=== PATIENT | male | born 1945 | race Caucasian/White ===

== ENCOUNTER 2021-12-28 11:42 | Inpatient (IN) ==
[2021-12-28 11:57] LABS: ABS Eosinophils 0.2 10^3/ul (0-0.6); ABS Lymphocytes 1.3 10^3/ul (1.0-4.8); ABS Monocytes 0.6 10^3/ul (0-0.8); ABS Neutrophils 5.1 10^3/ul (1.5-7.7); Eosinophil % 2.7 %; Hematocrit 40 % (42-52); Hemoglobin 13.6 g/dL (14.0-18.0); Lymphocyte % 17.7 %; Mean Corpuscular HGB Conc 34 g/dL (31-36); Mean Corpuscular Hemoglobin 31 pg (27-31); Mean Corpuscular Volume 90 fL (80-94); Mean Platelet Volume 8.4 fL (7.4-10.4); Platelet Count 141 10^3/uL (150-450); Red Blood Count 4.41 10^6 /uL (4.18-5.48); Red Cell Distribution Width 15 % (10-15); White Blood Count 7.2 10^3/uL (3.5-10.8)
[2021-12-28] MEDS ORDERED: Iodixanol (CONTRAST) 320 MG/ML 100 ML SDV IV ONE (12:01)
[2021-12-28 12:06] LABS: Activated Partial Thrombo Time 32.6 seconds (26.0-38.0); INR 1.07 (0.86-1.15)
[2021-12-28] MEDS ORDERED: Labetalol IV 5 MG/ML 20 ml VIAL IV PUSH ONE (12:12)
[2021-12-28] MEDS ORDERED: Alteplase (100 mg Vial) 100 mg VIAL IV ONE ×2 (12:12)
[2021-12-28 12:43] LABS: Albumin 4.1 g/dL (3.2-5.2); Albumin/Globulin Ratio 1.8 (1-3); Calcium 9.2 mg/dL (8.6-10.3); Globulin 2.3 g/dL (2-4); HDL Cholesterol 34.8 mg/dL; Potassium 4.1 mmol/L (3.5-5.0); Total Bilirubin 0.4 mg/dL (0.2-1.0); Total Protein 6.4 g/dL (6.4-8.9); eGFR CKD-EPI 83.5 (>60)
[2021-12-28] MEDS ORDERED: Labetalol IV 5 MG/ML 20 ml VIAL IV PUSH PRN (12:48)
[2021-12-28] MEDS ORDERED: Ondansetron 4 mg VIAL 2 MG/ML 2 ml VIAL IV PRN (12:48)
[2021-12-28] MEDS ORDERED: Acetaminophen IV 1 GM/100ML 100 ML IV PRN (12:48)
[2021-12-28 13:36] LABS: High Sensitivity Troponin 1 Hr 3 pg/mL (<20)
[2021-12-28 13:38] LABS: Acetaminophen < 15 mcg/mL; Alcohol, S < 13 mg/dL (<13); Salicylate < 2.50 mg/dL (<30)
[2021-12-28] MEDS ORDERED: Lactated Ringers 500 ml BAG 500 ML IV ONE (13:55)
[2021-12-28] MEDS ORDERED: Dextrose 50% Syringe 50 ml 25 GM/50 ML SYRINGE IV PUSH PRN (16:06)
[2021-12-28 17:20] LABS: TSH Ultra Thyroid Stim Horm 2.28 mcIU/mL (0.34-5.60)
[2021-12-28 17:26] LABS: Urine Appearance Cloudy; Urine Color Yellow; Urine Ketones Negative (Negative); Urine Protein Negative (Negative); Urine Specific Gravity 1.027 (1.002-1.030); Urine Urobilinogen Negative (Negative)
[2021-12-28 17:27] LABS: Urine Bilirubin Negative (Negative); Urine Blood Negative (Negative); Urine Glucose Negative (Negative); Urine Nitrite Negative (Negative)
[2021-12-28 17:39] LABS: Urine Bacteria 1+ (Absent); Urine Red Blood Cell 1+(3-5/hpf) (Absent); Urine White Blood Cell 2+(11-20/hpf) (Absent)
[2021-12-29 05:24] LABS: Hematocrit 36 % (42-52); Hemoglobin 12.7 g/dL (14.0-18.0); Mean Corpuscular HGB Conc 35 g/dL (31-36); Mean Corpuscular Hemoglobin 32 pg (27-31); Mean Corpuscular Volume 91 fL (80-94); Mean Platelet Volume 8.4 fL (7.4-10.4); Platelet Count 147 10^3/uL (150-450); Red Blood Count 4.02 10^6 /uL (4.18-5.48); Red Cell Distribution Width 15 % (10-15); White Blood Count 7.7 10^3/uL (3.5-10.8)
[2021-12-29 05:51] LABS: ALT 14 U/L (7-52); Albumin 3.8 g/dL (3.2-5.2); Albumin/Globulin Ratio 1.9 (1-3); Alkaline Phosphatase 56 U/L (35-149); Blood Urea Nitrogen 16 mg/dL (6-24); CO2 Carbon Dioxide 29 mmol/L (22-32); Calcium 8.6 mg/dL (8.6-10.3); Chloride 102 mmol/L (101-111); Glucose 119 mg/dL (70-100); Magnesium 1.4 mg/dL (1.9-2.7); Sodium 136 mmol/L (135-145); Total Protein 5.8 g/dL (6.4-8.9); eGFR CKD-EPI 92.6 (>60)
[2021-12-29] MEDS ORDERED: Magnesium Sulfate 2 gm BAG 2 GM/50 ML BAG IVPB ONE (05:55)
[2021-12-29 05:58] LABS: Anion Gap 5 mmol/L (2-11)
[2021-12-29 06:57] LABS: Potassium Redraw 4.6 mmol/L (3.5-5.0)
[2021-12-29] MEDS ORDERED: Lactated Ringers 1000 ml BAG 1,000 ML IV SCH (09:00)
[2021-12-29] MEDS ORDERED: Cholecalciferol (VIT D3) 1,000 unit TAB PO SCH (09:00)
[2021-12-29] MEDS: Aspirin EC 81 mg TAB.EC (enteric coated) PO SCH (17:01)
[2021-12-30] MEDS ORDERED: Furosemide 40 mg/4 ml IV VIAL IV SLOW PU ONE ×2 (04:32→06:30)
[2021-12-30] MEDS ORDERED: Albuterol/Ipratropium NEB.SOL (2.5/0.5 MG) 3 ML NEB.SOLN INH ONE (04:34)
[2021-12-30] MEDS ORDERED: Piperacillin/Tazobac ADVAN 3.375 GM in NS 0.9% 100 ml BAG 100 ML IV ONE (04:50)
[2021-12-30] MEDS ORDERED: Zosyn per Pharmacy NOTE FOLLOW UP SCH (05:00)
[2021-12-30 05:18] LABS: ABS Eosinophils 0.1 10^3/ul (0-0.6); ABS Lymphocytes 1.2 10^3/ul (1.0-4.8); ABS Monocytes 0.3 10^3/ul (0-0.8); ABS Neutrophils 7.8 10^3/ul (1.5-7.7); Eosinophil % 1.3 %; Hematocrit 45 % (42-52); Hemoglobin 15.2 g/dL (14.0-18.0); Mean Corpuscular HGB Conc 34 g/dL (31-36); Mean Corpuscular Hemoglobin 31 pg (27-31); Mean Corpuscular Volume 91 fL (80-94); Mean Platelet Volume 8.5 fL (7.4-10.4); Nucleated Red Blood Cells % 0.1; Platelet Count 199 10^3/uL (150-450); Red Cell Distribution Width 15 % (10-15); White Blood Count 9.4 10^3/uL (3.5-10.8)
[2021-12-30 05:34] LABS: Calcium 9.2 mg/dL (8.6-10.3); Magnesium 1.4 mg/dL (1.9-2.7); Potassium 4.6 mmol/L (3.5-5.0); eGFR CKD-EPI 72.4 (>60)
[2021-12-30] MEDS ORDERED: Iohexol 350 (CONTRAST) 500 ML MDV IV ONE (06:11)
[2021-12-30] MEDS ORDERED: Metoprolol Tartrate 5 mg VIAL 5 ml VIAL (1 mg/ml) IV ONE (06:40)
[2021-12-30] MEDS ORDERED: Cholecalciferol (VIT D3) 1,000 unit TAB G TUBE SCH (08:52)
[2021-12-30] MEDS ORDERED: Lansoprazole SUSP ORALSYR 3 MG/ML G TUBE SCH (09:00)
[2021-12-30] MEDS ORDERED: SERTRALINE 20 MG/ML FEED TUBE SCH (09:01)
[2021-12-30] MEDS: Aspirin EC 81 mg TAB.EC (enteric coated) PO SCH (09:23)
[2021-12-30] MEDS ORDERED: Magnesium Sulfate IV 3 GM in NS 0.9% 100 ml BAG 100 ML IVPB ONE (09:29)
[2021-12-30] MEDS ORDERED: Magnesium Sulfate 2 GM IV (Premix) IVPB ONE (10:00)
[2021-12-30] MEDS ORDERED: SERTRALINE 20 MG/ML PO SCH (10:03)
[2021-12-30] MEDS ORDERED: Lansoprazole SUSP ORALSYR 3 MG/ML PO SCH (10:03)
[2021-12-30 10:05] LABS: Albumin 4.2 g/dL (3.2-5.2); Albumin/Globulin Ratio 1.7 (1-3); Direct Bilirubin 0.2 mg/dL (0.03-0.18); Globulin 2.5 g/dL (2-4); Indirect Bilirubin 0.6 mg/dL (0.3-1.0); Total Bilirubin 0.8 mg/dL (0.2-1.0); Total Protein 6.7 g/dL (6.4-8.9)
[2021-12-30] MEDS: ZOSYN 3.375 GM Q8H per EXTENDED INFUSION IV SCH ×2 (10:21→16:20)
[2021-12-30] MEDS: NS 0.9% 1000 ml BAG 1,000 ML IV ONE ×2 (10:36→12:08)
[2021-12-30] MEDS ORDERED: Magnesium Sulfate 1 GM IV 1 GM/100 ML BAG IV ONE (11:00)
[2021-12-30] MEDS ORDERED: NS 0.9% 1000 ml BAG 1,000 ML IV SCH ×2 (12:15→16:45)
[2021-12-30] MEDS ORDERED: NS 0.9% 1000 ml BAG 400 ML IV ONE (12:30)
[2021-12-30] MEDS ORDERED: NS 0.9% IV ONE (13:00)
[2021-12-30] MEDS ORDERED: Linezolid 600 MG IVPREMIX(*) 600 MG/300 ML BAG IVPB SCH (16:00)
[2021-12-30] MEDS ORDERED: Vancomycin 1,500 MG in NS 0.9% 250 ml 250 ML IVPB ONE (16:30)
[2021-12-30 16:32] LABS: PCO2 Arterial 43 mmHg (35-45); PO2 Arterial 89 mmHg (80-100)
[2021-12-30 16:44] LABS: Magnesium 2.1 mg/dL (1.9-2.7); eGFR CKD-EPI 63.7 (>60)
[2021-12-30 17:05] LABS: Potassium 4.3 mmol/L (3.5-5.0)
[2021-12-30] MEDS: Enoxaparin 40 MG/0.4 ML SYR SUBCUT SCH (17:51)
[2021-12-30] MEDS ORDERED: Vancomycin per Pharmacy 1 EA NOTE FOLLOW UP PRN (19:48)
[2021-12-30] MEDS ORDERED: ORALSYR PO SCH (21:00)
[2021-12-30] MEDS ORDERED: RISPERIDONE PO SCH (21:00)
[2021-12-31] MEDS: ZOSYN 3.375 GM Q8H per EXTENDED INFUSION IV SCH ×3 (01:30→18:33)
[2021-12-31 05:06] LABS: ABS Eosinophils 0.1 10^3/ul (0-0.6); ABS Lymphocytes 0.7 10^3/ul (1.0-4.8); ABS Monocytes 0.5 10^3/ul (0-0.8); Eosinophil % 0.9 %; Hematocrit 28 % (42-52); Hemoglobin 9.2 g/dL (14.0-18.0); Lymphocyte % 7.9 %; Mean Corpuscular HGB Conc 34 g/dL (31-36); Mean Corpuscular Hemoglobin 31 pg (27-31); Mean Corpuscular Volume 93 fL (80-94); Mean Platelet Volume 8.5 fL (7.4-10.4); Platelet Count 113 10^3/uL (150-450); Red Blood Count 2.97 10^6 /uL (4.18-5.48); Red Cell Distribution Width 15 % (10-15); White Blood Count 9.4 10^3/uL (3.5-10.8)
[2021-12-31] MEDS: Vancomycin 1000 MG in NS 0.9% 250 ML IVPB SCH ×2 (05:12→21:44)
[2021-12-31 05:37] LABS: Calcium 6.8 mg/dL (8.6-10.3); Magnesium 1.8 mg/dL (1.9-2.7); Potassium 3.4 mmol/L (3.5-5.0); eGFR CKD-EPI 91.3 (>60)
[2021-12-31] MEDS ORDERED: KCL 20 MEQ/100 ML IVPREMIX 20 MEQ/100 ML BAG IV ONE (07:15)
[2021-12-31] MEDS ORDERED: Magnesium Sulfate 2 gm BAG 2 GM/50 ML BAG IVPB ONE (07:15)
[2021-12-31 08:05] LABS: Phosphorus 2.7 mg/dL (2.5-5.0)
[2021-12-31] MEDS: Aspirin EC 81 mg TAB.EC (enteric coated) PO SCH (08:35)
[2021-12-31] MEDS: Cholecalciferol (VIT D3) 1,000 unit TAB PO SCH (08:35)
[2021-12-31 10:12] LABS: Hematocrit 32 % (42-52); Hemoglobin 10.7 g/dL (14.0-18.0)
[2021-12-31] MEDS: Enoxaparin 40 MG/0.4 ML SYR SUBCUT SCH (17:23)
[2022-01-01] MEDS: ZOSYN 3.375 GM Q8H per EXTENDED INFUSION IV SCH ×2 (01:38→10:05)
[2022-01-01] MEDS ORDERED: Vancomycin Trough Check NOTE FOLLOW UP ONE (05:30)
[2022-01-01 06:42] LABS: ABS Eosinophils 0.2 10^3/ul (0-0.6); ABS Lymphocytes 0.5 10^3/ul (1.0-4.8); ABS Monocytes 0.4 10^3/ul (0-0.8); ABS Neutrophils 6.3 10^3/ul (1.5-7.7); Eosinophil % 3.3 %; Hematocrit 29 % (42-52); Mean Corpuscular HGB Conc 35 g/dL (31-36); Mean Corpuscular Hemoglobin 32 pg (27-31); Mean Corpuscular Volume 91 fL (80-94); Mean Platelet Volume 8.2 fL (7.4-10.4); Platelet Count 128 10^3/uL (150-450); Red Blood Count 3.15 10^6 /uL (4.18-5.48); Red Cell Distribution Width 14 % (10-15); White Blood Count 7.5 10^3/uL (3.5-10.8)
[2022-01-01 07:14] LABS: Calcium 7.9 mg/dL (8.6-10.3); Magnesium 1.6 mg/dL (1.9-2.7); Potassium 4.1 mmol/L (3.5-5.0); eGFR CKD-EPI 92.6 (>60)
[2022-01-01] MEDS ORDERED: Magnesium Sulfate 2 gm BAG 2 GM/50 ML BAG IVPB ONE (07:54)
[2022-01-01] MEDS ORDERED: Vancomycin 1,250 MG in NS 0.9% 250 ml 250 ML IVPB SCH (08:30)
[2022-01-01] MEDS: Cholecalciferol (VIT D3) 1,000 unit TAB PO SCH (08:33)
[2022-01-01] MEDS: Aspirin EC 81 mg TAB.EC (enteric coated) PO SCH (08:34)
[2022-01-01] MEDS ORDERED: Dextran 70/Hypromellose Tears Eye Drops 15 ml BTL (for Artificials Tears) BOTH EYES PRN (16:41)
[2022-01-01] MEDS: Enoxaparin 40 MG/0.4 ML SYR SUBCUT SCH (17:12)
[2022-01-01] MEDS: Vancomycin 1000 MG in NS 0.9% 250 ML IVPB SCH (19:27)
[2022-01-02 06:00] LABS: ABS Eosinophils 0.3 10^3/ul (0-0.6); ABS Lymphocytes 0.7 10^3/ul (1.0-4.8); ABS Monocytes 0.6 10^3/ul (0-0.8); ABS Neutrophils 5.1 10^3/ul (1.5-7.7); Eosinophil % 4.6 %; Hematocrit 29 % (42-52); Hemoglobin 10.1 g/dL (14.0-18.0); Mean Corpuscular HGB Conc 35 g/dL (31-36); Mean Corpuscular Hemoglobin 32 pg (27-31); Mean Corpuscular Volume 91 fL (80-94); Mean Platelet Volume 8.3 fL (7.4-10.4); Platelet Count 155 10^3/uL (150-450); Red Blood Count 3.18 10^6 /uL (4.18-5.48); Red Cell Distribution Width 14 % (10-15); White Blood Count 6.8 10^3/uL (3.5-10.8)
[2022-01-02 06:37] LABS: Calcium 8.2 mg/dL (8.6-10.3); Magnesium 1.6 mg/dL (1.9-2.7); Potassium 4.2 mmol/L (3.5-5.0); eGFR CKD-EPI 96.5 (>60)
[2022-01-02] MEDS ORDERED: Magnesium Sulfate IV 3 GM in NS 0.9% 100 ml BAG 100 ML IVPB ONE (08:18)
[2022-01-02] MEDS ORDERED: Magnesium Sulfate 2 GM IV (Premix) IVPB ONE (09:00)
[2022-01-02] MEDS ORDERED: Magnesium Sulfate 1 GM IV 1 GM/100 ML BAG IV ONE (10:00)
[2022-01-02] MEDS: Aspirin EC 81 mg TAB.EC (enteric coated) PO SCH (10:18)
[2022-01-02] MEDS: Cholecalciferol (VIT D3) 1,000 unit TAB PO SCH (10:18)
[2022-01-02] MEDS: Enoxaparin 40 MG/0.4 ML SYR SUBCUT SCH (17:19)
[2022-01-03 07:48] LABS: ABS Eosinophils 0.4 10^3/ul (0-0.6); ABS Lymphocytes 0.8 10^3/ul (1.0-4.8); ABS Monocytes 0.6 10^3/ul (0-0.8); ABS Neutrophils 4.6 10^3/ul (1.5-7.7); Eosinophil % 5.9 %; Hematocrit 31 % (42-52); Hemoglobin 10.5 g/dL (14.0-18.0); Mean Corpuscular HGB Conc 34 g/dL (31-36); Mean Corpuscular Hemoglobin 32 pg (27-31); Mean Corpuscular Volume 92 fL (80-94); Mean Platelet Volume 7.9 fL (7.4-10.4); Nucleated Red Blood Cells % 0.1; Platelet Count 170 10^3/uL (150-450); Red Blood Count 3.32 10^6 /uL (4.18-5.48); Red Cell Distribution Width 14 % (10-15); White Blood Count 6.4 10^3/uL (3.5-10.8)
[2022-01-03] MEDS ORDERED: Vancomycin Trough Check NOTE FOLLOW UP ONE (08:00)
[2022-01-03 08:25] LABS: Calcium 8.2 mg/dL (8.6-10.3); Magnesium 1.7 mg/dL (1.9-2.7); Potassium 4.3 mmol/L (3.5-5.0); eGFR CKD-EPI 94.5 (>60)
[2022-01-03] MEDS: Cholecalciferol (VIT D3) 1,000 unit TAB PO SCH (09:15)
[2022-01-03] MEDS: Aspirin EC 81 mg TAB.EC (enteric coated) PO SCH (09:16)
[2022-01-03] MEDS ORDERED: Magnesium Sulfate IV 3 GM in NS 0.9% 100 ml BAG 100 ML IVPB ONE (15:58)
[2022-01-03] MEDS: Enoxaparin 40 MG/0.4 ML SYR SUBCUT SCH (16:48)
[2022-01-03] MEDS ORDERED: Magnesium Sulfate 2 GM IV (Premix) IVPB ONE (17:00)
[2022-01-03] MEDS ORDERED: Magnesium Sulfate 1 GM IV 1 GM/100 ML BAG IV ONE (18:00)
[2022-01-04] MEDS: Cholecalciferol (VIT D3) 1,000 unit TAB PO SCH (08:33)
[2022-01-04] MEDS: Aspirin EC 81 mg TAB.EC (enteric coated) PO SCH (08:33)
[2022-01-04 12:04] LABS: High Sensitivity Troponin 1 Hr < 3 pg/mL (<20)
[2022-01-04 12:34] VITALS: BP 122/63
== END 2022-01-04 13:30 | DRG 61 ==
LOC: ED 11:42 → EDHOLD 13:36 → ICU 14:18 → MEDTELE 12-29 17:59 → ICU 12-30 06:23 → MED 12-31 18:23
PROVIDERS: ADMIT Internal Medicine Critical Care Medicine; ATTEND Internal Medicine

== ENCOUNTER 2022-01-04 08:50 | Inpatient (IN) ==
[2022-01-04] MEDS ORDERED: Magnesium Hydroxide LIQ 30 ML UDC PO PRN (16:39)
[2022-01-04] MEDS ORDERED: Senna TAB 8.6 mg TAB PO PRN (16:39)
[2022-01-04] MEDS: Enoxaparin 40 MG/0.4 ML SYR SUBCUT SCH (17:38)
[2022-01-04 22:03] LABS: Urine Appearance Cloudy; Urine Bilirubin Negative (Negative); Urine Blood 3+ (Negative); Urine Color Yellow; Urine Glucose Negative (Negative); Urine Ketones Negative (Negative); Urine Nitrite Negative (Negative); Urine Protein 1+(30 mg/dL) (Negative); Urine Specific Gravity 1.008 (1.002-1.030); Urine Urobilinogen Negative (Negative)
[2022-01-04 22:10] LABS: Urine Bacteria Absent (Absent); Urine Red Blood Cell 3+(>10/hpf) (Absent); Urine White Blood Cell 1+(6-10/hpf) (Absent)
[2022-01-05] MEDS ORDERED: Dextrose 50% Syringe 50 ml 25 GM/50 ML SYRINGE IV PUSH PRN (01:04)
[2022-01-05 06:39] LABS: ABS Eosinophils 0.5 10^3/ul (0-0.6); ABS Lymphocytes 1.2 10^3/ul (1.0-4.8); ABS Monocytes 0.7 10^3/ul (0-0.8); ABS Neutrophils 4.8 10^3/ul (1.5-7.7); Eosinophil % 6.8 %; Hematocrit 31 % (42-52); Hemoglobin 10.6 g/dL (14.0-18.0); Lymphocyte % 16.9 %; Mean Corpuscular HGB Conc 34 g/dL (31-36); Mean Corpuscular Hemoglobin 31 pg (27-31); Mean Corpuscular Volume 92 fL (80-94); Mean Platelet Volume 7.8 fL (7.4-10.4); Platelet Count 187 10^3/uL (150-450); Red Cell Distribution Width 15 % (10-15); White Blood Count 7.2 10^3/uL (3.5-10.8)
[2022-01-05 07:09] LABS: Albumin 3.3 g/dL (3.2-5.2); Albumin/Globulin Ratio 1.4 (1-3); Calcium 8.7 mg/dL (8.6-10.3); Globulin 2.4 g/dL (2-4); Potassium 4.5 mmol/L (3.5-5.0); Total Bilirubin 0.5 mg/dL (0.2-1.0); Total Protein 5.7 g/dL (6.4-8.9); eGFR CKD-EPI 93.7 (>60)
[2022-01-05] MEDS: Aspirin EC 81 mg TAB.EC (enteric coated) PO SCH (07:41)
[2022-01-05] MEDS: Enoxaparin 40 MG/0.4 ML SYR SUBCUT SCH (17:41)
[2022-01-06] MEDS: Aspirin EC 81 mg TAB.EC (enteric coated) PO SCH (07:24)
[2022-01-06] MEDS: Enoxaparin 40 MG/0.4 ML SYR SUBCUT SCH (17:53)
[2022-01-06] MEDS: Amoxicillin/Clavul 875/125 TAB (Augmentin 875 tab) PO SCH (21:48)
[2022-01-07] MEDS: Aspirin EC 81 mg TAB.EC (enteric coated) PO SCH (07:37)
[2022-01-07] MEDS: Amoxicillin/Clavul 875/125 TAB (Augmentin 875 tab) PO SCH ×2 (07:37→22:17)
[2022-01-07] MEDS: Enoxaparin 40 MG/0.4 ML SYR SUBCUT SCH (18:04)
[2022-01-08] MEDS: Aspirin EC 81 mg TAB.EC (enteric coated) PO SCH (08:01)
[2022-01-08] MEDS: Amoxicillin/Clavul 875/125 TAB (Augmentin 875 tab) PO SCH ×2 (08:01→21:04)
[2022-01-08] MEDS: Enoxaparin 40 MG/0.4 ML SYR SUBCUT SCH (17:59)
[2022-01-09] MEDS: Amoxicillin/Clavul 875/125 TAB (Augmentin 875 tab) PO SCH ×2 (08:05→20:18)
[2022-01-09] MEDS: Aspirin EC 81 mg TAB.EC (enteric coated) PO SCH (08:05)
[2022-01-09] MEDS: Enoxaparin 40 MG/0.4 ML SYR SUBCUT SCH (17:47)
[2022-01-10] MEDS: Amoxicillin/Clavul 875/125 TAB (Augmentin 875 tab) PO SCH ×2 (08:51→20:33)
[2022-01-10] MEDS: Aspirin EC 81 mg TAB.EC (enteric coated) PO SCH (08:52)
[2022-01-10] MEDS: Enoxaparin 40 MG/0.4 ML SYR SUBCUT SCH (17:00)
[2022-01-10] MEDS ORDERED: Al Hydrox/Mg Hydrox/Simet LIQ 30 ML UDC PO PRN (18:44)
[2022-01-11] MEDS: Amoxicillin/Clavul 875/125 TAB (Augmentin 875 tab) PO SCH ×2 (09:10→21:22)
[2022-01-11] MEDS: Aspirin EC 81 mg TAB.EC (enteric coated) PO SCH (09:10)
[2022-01-11] MEDS: Enoxaparin 40 MG/0.4 ML SYR SUBCUT SCH (18:43)
[2022-01-12 05:46] VITALS: BP 162/74
[2022-01-12 07:03] LABS: ABS Eosinophils 0.3 10^3/ul (0-0.6); ABS Lymphocytes 0.9 10^3/ul (1.0-4.8); ABS Monocytes 0.4 10^3/ul (0-0.8); ABS Neutrophils 3.8 10^3/ul (1.5-7.7); Eosinophil % 5.2 %; Hematocrit 35 % (42-52); Hemoglobin 12.2 g/dL (14.0-18.0); Lymphocyte % 17.3 %; Mean Corpuscular HGB Conc 35 g/dL (31-36); Mean Corpuscular Hemoglobin 32 pg (27-31); Mean Corpuscular Volume 92 fL (80-94); Mean Platelet Volume 7.9 fL (7.4-10.4); Platelet Count 266 10^3/uL (150-450); Red Blood Count 3.85 10^6 /uL (4.18-5.48); Red Cell Distribution Width 15 % (10-15); White Blood Count 5.4 10^3/uL (3.5-10.8)
[2022-01-12 07:22] LABS: Albumin 3.9 g/dL (3.2-5.2); Albumin/Globulin Ratio 1.4 (1-3); Calcium 9.2 mg/dL (8.6-10.3); Globulin 2.8 g/dL (2-4); Potassium 4.6 mmol/L (3.5-5.0); Total Bilirubin 0.4 mg/dL (0.2-1.0); Total Protein 6.7 g/dL (6.4-8.9); eGFR CKD-EPI 91.3 (>60)
[2022-01-12] MEDS: Aspirin EC 81 mg TAB.EC (enteric coated) PO SCH (08:17)
[2022-01-12] MEDS: Amoxicillin/Clavul 875/125 TAB (Augmentin 875 tab) PO SCH (08:17)
== END 2022-01-12 12:35 | disposition home or self-care (01) | DRG 57 ==
LOC: PMRU 14:09
PROVIDERS: ADMIT Physical Medicine & Rehabilitation; ATTEND Physical Medicine & Rehabilitation